=== PATIENT | male | born 1960 | race Two or more races ===

== ENCOUNTER → 2023-05-27 | Outpatient (CLI) | payer BC ==
[2023-05-27 07:03] LABS: African American GFR (CKD) >90 (>60 ml/min/1.73 sqM); Blood Urea Nitrogen 16 mg/dL (9-20); Non-African American GFR(CKD) >90 (>60 ml/min/1.73 sqM)
--- NOTE | 2023-05-27 08:48 | CT ---
EXAMINATION TYPE: CT angio neck DATE OF EXAM: 05/27/2023 HISTORY: Carotid stenosis, bilateral without cerebrovascular infarction COMPARISON: None CT DLP: 408 mGycm. Automated Exposure Control for Dose Reduction was Utilized. TECHNIQUE: CTA scan of the head and neck is performed with IV Contrast, patient injected with 65 ml of Isovue 300, axial images are obtained, coronal and sagittal reformatted images are reviewed. 3D r econstructed images are created on an independent workstation and reviewed. FINDINGS: Suboptimal study with less than ideal contrast bolus with most dense contrast in the left b rachiocephalic vein draining into SVC. Suboptimal study also in only 3 mm axial cuts sent to PACS. Carotid/Vascular Structures: Normal 3 vessel origin from aortic arch without significant plaque or st enosis . No significant plaque or stenosis along the common carotid arteries bilaterally. Severe calc ified plaque at origin of the right brachiocephalic artery causes stenosis difficult to accurately me asure due to blooming artifact from calcified plaque. Luminal diameter narrowed to a roughly 2.4 mm w ith reconstitution to 5.3 mm distal to this. Moderate to severe calcified plaque left carotid bulb ex tends into proximal internal carotid artery without significant stenosis. Patent external carotid art eries bilaterally without significant stenosis. Vertebral arteries are patent to the basilar junction . Left vertebral artery is larger caliber dominant. Moderate calcified plaque of the distal internal carotid arteries is only partially imaged on this exam. Other: Incidental 1.2 cm mucous retention cyst or polyp in the anterior right maxillary sinus with mi ld mucosal thickening inferiorly in both maxillary sinuses noted. IMPRESSION: Suboptimal study, significant stenosis at the origin of right internal carotid artery is felt present. Diameter narrowing estimated near 60%. NASCET criteria was used in interpretation of this exam?
== END | disposition home or self-care (01) ==
LOC: RADCTMAIN 06:16
PROVIDERS: ATTEND Internal Medicine Clinical Cardiac Electrophysiology
DX: I65.8 Occlusion and stenosis of other precerebral arteries (principal)
CPT/HCPCS: 82565; 84520; 70498; Q9967